=== PATIENT | female | born 1940 | race Caucasian/White ===

== ENCOUNTER 2016-10-21 12:58 | Emergency (ER) | payer OTHER ==
[~2016-10-21] VITALS: Ht 165.1 cm; Wt 67.0 kg
[2016-10-21 13:18] VITALS: Ht 165.1 cm; Wt 67.0 kg
[2016-10-21] MEDS ORDERED: TETRACAINE 0.5% 15 ML OPH RIGHT EYE ONE (14:00)
[2016-10-21] MEDS ORDERED: TETRACAINE 0.5% 15 ML OPH ONE (14:19)
[2016-10-21] MEDS ORDERED: DEXT15DR2 RIGHT EYE (15:20)
--- NOTE | 2016-10-21 15:55 | ERD ---
ER Documentation Chief Complaint Date/Time DATE: 10/21/16 TIME: 15:49 Chief Complaint RT EYE REDNESS FIRST NOTICED UPON WAKING TODAY HPI 75-year-old female with a past medical history of diabetes, hypertension, left eye cataracts presents the ED complaining of a red right eye upon awakening this morning. Patient denies any eye pain, blurred vision, diplopia, photophobia, phonophobia. Patient denies any headache, weakness, dizziness, chest pain, shortness of breath. Denies any purulent discharge or eye crust upon awakening. Denies any foreign bodies to the right eye. Denies scratching her bilateral eyes. ROS All systems reviewed and are negative except as per history of present illness. Medications Home Meds Active Scripts Dextran/Hypromellose/Glycerin (Artificial Tears Drops) 15 Ml Drops, 2 DROP RIGHT EYE Q6, #1 EA Prov:CHEMA KRUEGER PA-C 10/21/16 PMhx/Soc Hx Alcohol Use: No Hx Substance Use: No Hx Tobacco Use: No Physical Exam Vitals Vital Signs Date Time Temp Pulse Resp B/P Pulse Ox O2 Delivery O2 Flow Rate FiO2 10/21/16 13:18 98.1 81 16 145/69 98 Physical Exam Const: [id number]-cvt-itvprrcsd, well-nourished. In no acute distress. Head: Atraumatic, normocephalic Eyes: Supple conjunctival hemorrhage noted of right eye. Left normal Conjunctiva without injection. Bilateral red reflex appreciated. No purulent discharge. PERRLA. EOMI ENT: Normal external ear. Ear canal without erythema. Tympanic membrane pearly henriquez without effusion or bulging. Nasal canal clear with normal turbinates. Moist oropharynx without tonsillar exudates. Non-erythematous pharynx. Uvula midline. No drooling. No trismus. Neck: No cervical midline tenderness. Full range of motion. No meningismus. No cervical lymphadenopathy. No JVD. Resp: Clear to auscultation bilaterally. No wheezing, rhonchi, rales, or crackles. No accessory muscle use. No retractions. Cardio: Regular rate and rhythm. No murmurs, rubs or gallops. Skin: Normal skin turgor. No petechiae or rashes Back: No midline tenderness. No CVA tenderness. Neur: Awake and alert. Normal gait. Normal coordination. Cranial Nerves II- VII intact. Normal finger to nose. Muscle strength 5/5. Sensation intact. Psych: Normal Mood and Affect Results 24 hrs Current Medications Medications (Trade) Dose Ordered Sig/Trung Route PRN Reason Start Time Stop Time Status Last Admin Dose Admin Tetracaine HCl (Tetracaine 0.5% Oph) 1 drop ONCE ONCE RIGHT EYE 10/21/16 14:00 10/21/16 14:02 DC Procedures/MDM This is a 75-year-old female with a past medical history of diabetes, hypertension, left cataracts presents to the ED complaining of a red painless right eye that started upon awakening this morning. Patient is afebrile nontoxic appearing. Patient has normal vital signs. Patient's ocular symptoms have stabilized while they have been evaluated in the department and are appropriate for outpatient work up. Patient's physical exam is likely consistent with subconjunctival hemorrhage of the right eye. Eye Exam w/ Wood's lamp: Visual Acuity: [L 20/50 R 20/40 Bilateral 20/40] Visual [place]: Intact in all four quadrants bilaterally Lac ducts/glands: No swelling Lids w/ evertion: Normal, no foreign body Conj/[place]: Subconjunctival hemorrhage noted of right eye Anterior Chamber: Clear Tonopen readings: [R 23 mmHg L 14 mmHg Strictly instructed patient to follow-up with an appointment specialist within 24 hours for IOP of right eye compared to left eye to rule out acute angle closure glaucoma. Low suspicion for ruptured globe, retinal detachment, acute angle closure glaucoma, deep space infection, iritis, traumatic hyphema, conjunctivitis, subconjunctival hemorrhage, corneal abrasion, infectious keratitis, corneal ulcer, pterygium, hypopyon, blepharitis, episcleritis, hordeolum, chalazion, or other emergent conditions. Discharge medications: Artificial tears Follow up with primary care physician in 1-2 days. Instructed patient to return to the ED sooner for any worsening symptoms. Patient's questions were answered. Patient understood and agreed with discharge plan. Patient discharged stable. Departure Diagnosis: Primary Impression: Discomfort of right eye Condition: Stable Patient Instructions: Understanding Red Eye: Causes, Subconjunctival Hemorrhage Referrals: COMMUNITY CLINICS YOU HAVE RECEIVED A MEDICAL SCREENING EXAM AND THE RESULTS INDICATE THAT YOU DO NOT HAVE A CONDITION THAT REQUIRES URGENT TREATMENT IN THE EMERGENCY DEPARTMENT. FURTHER EVALUATION AND TREATMENT OF YOUR CONDITION CAN WAIT UNTIL YOU ARE SEEN IN YOUR DOCTORS OFFICE WITHIN THE NEXT 1-2 DAYS. IT IS YOUR RESPONSIBILITY TO MAKE AN APPOINTMENT FOR FOLOW-UP CARE. IF YOU HAVE A PRIMARY DOCTOR --you should call your primary doctor and schedule an appointment IF YOU DO NOT HAVE A PRIMARY DOCTOR YOU CAN CALL OUR PHYSICIAN REFERRAL HOTLINE AT IF YOU CAN NOT AFFORD TO SEE A PHYSICIAN YOU CAN CHOSE FROM THE FOLLOWING [facility] [address] [facility] [address] [facility] [address] [facility] [address] [facility] [address] [facility]. [facility] [address] [facility] [facility] YOU HAVE RECEIVED A MEDICAL SCREENING EXAM AND THE RESULTS INDICATE THAT YOU DO NOT HAVE A CONDITION THAT REQUIRES URGENT TREATMENT IN THE EMERGENCY DEPARTMENT. FURTHER EVALUATION AND TREATMENT OF YOUR CONDITION CAN WAIT UNTIL YOU ARE SEEN IN YOUR DOCTORS OFFICE WITHIN THE NEXT 1-2 DAYS. IT IS YOUR RESPONSIBILITY TO MAKE AN APPOINTMENT FOR FOLOW-UP CARE. IF YOU HAVE A PRIMARY DOCTOR --you should call your primary doctor and schedule and appointment IF YOU DO NOT HAVE A PRIMARY DOCTOR YOU CAN CALL OUR PHYSICIAN REFERRAL HOTLINE AT . IF YOU CAN NOT AFFORD TO SEE A PHYSICIAN YOU CAN CHOSE FROM THE FOLLOWING [facility] INSTITUTIONS: [facility], [place] [address] [place] [address] [facility] [address] [place] [address] [facility] [address] [place] [address] [facility] Hours: Mon - Fri 9:00 AM - 5:00 PM Additional Instructions: Es importante que siga con el oftalmlogo (oculista) dentro de 24 horas. Regrese a estas instalaciones si no se mejora kristi esperbamos o kristi le dijimos. CHEMA KRUEGER PA-C Oct 21, 2016 15:55
== END 2016-10-21 15:46 | disposition home or self-care (01) ==
LOC: FTE 12:58
DX: H57.8 Other specified disorders of eye and adnexa (principal); E11.9 Type 2 diabetes mellitus without complications; I10 Essential (primary) hypertension
CPT/HCPCS: 99283